=== PATIENT | female | born 1985 ===

== ENCOUNTER 2022-01-23 11:36 | Emergency (ER) | payer MEDICAID ==
[2022-01-23 14:47] VITALS: BP 155/98
[2022-01-23] MEDS ORDERED: SODIUM CHLORIDE 0.9% 1000 ML 1,000 ML IV ONE (14:50)
[2022-01-23] MEDS ORDERED: ONDANSETRON 4 MG/2 ML INJ IV ONE (14:50)
[2022-01-23 15:21] LABS: Bilirubin,Urine NEG (Negative); Blood,Urine NEG (Negative); Color,Urine Yellow (Yellow); Urobilinogen,Urine < 2.0 mg/dL (<2.0)
--- NOTE | 2022-01-23 15:22 | Emergency Department Report ---
ED General Adult HPI - General Chief complaint: Abdominal Pain Stated complaint: ABDOMINAL PAIN PUI?: No Time Seen by Provider: 01/23/22 15:00 Source: patient, EMS Mode of arrival: Stretcher Limitations: No Limitations - History of Present Illness Initial comments: 36-year-old female came in today with concerns of 1 to 2 weeks of vomiting. Patient also endorsed generalized abdominal discomfort. According patient she has not had a good bowel movement for the past 2 to 3 days. According patient she has been having to strain in order to pass stool. Patient denies any other discomfort. Patient denies fever chill night sweat dizziness blurred vision lightheadedness headache tinnitus ear pain runny nose sore throat loss of taste loss of smell chest pain palpitation short of breath cough diarrhea dysuria myalgia arthralgia new rash he will call intolerance. Severity scale (0 -10): 10 - Related Data Home Medications Medication Instructions Recorded Confirmed Last Taken Cyclobenzaprine [Flexeril 10mg] 10 mg PO TID 10/02/14 10/02/14 Unknown cephALEXin [Keflex] 500 mg PO Q6H 10/02/14 10/02/14 10/02/14 traMADoL [Ultram] 50 mg PO Q6HR PRN 10/02/14 10/02/14 10/02/14 Previous Rx's Medication Instructions Recorded Last Taken Type HYDROcodone/APAP 5-325 [[place] 1 each PO Q6HR PRN #20 tablet 10/03/14 Unknown Rx 5/325] Ciprofloxacin HCl [Ciprofloxacin 500 mg PO Q12HR #20 tab 06/14/15 Unknown Rx TAB] Phenazopyridine [Pyridium] 100 mg PO TID #6 tab 06/14/15 Unknown Rx Sennosides/Docusate Sodium 1 each PO Q12H #6 01/23/22 Unknown Rx [Docusate Sodium-Senna Tablet] Allergies Allergy/AdvReac Type Severity Reaction Status Date / Time No Known Allergies Allergy Verified 01/23/22 12:02 ED Review of Systems ROS: Stated complaint: ABDOMINAL PAIN Other details as noted in HPI Comment: All other systems reviewed and negative Constitutional: no symptoms reported, see HPI Eyes: as per HPI ENT: as per HPI Respiratory: no symptoms reported Cardiovascular: as per HPI Endocrine: no symptoms reported Gastrointestinal: abdominal pain, vomiting, constipation. denies: nausea, diarrhea, hematemesis, melena, hematochezia Genitourinary: as per HPI Musculoskeletal: as per HPI Skin: as per HPI Neurological: as per HPI Psychiatric: as per HPI Hematological/Lymphatic: as per HPI ED Past Medical Hx - Past Medical History Previous Medical History?: No - Surgical History Past Surgical History?: No Additional Surgical History: x 3, Panniculectomy, ablation - Social History Smoking Status: Current Every Day Smoker Substance Use Type: Marijuana - Medications Home Medications: Home Medications Medication Instructions Recorded Confirmed Last Taken Type Cyclobenzaprine [Flexeril 10mg] 10 mg PO TID 10/02/14 10/02/14 Unknown History cephALEXin [Keflex] 500 mg PO Q6H 10/02/14 10/02/14 10/02/14 History traMADoL [Ultram] 50 mg PO Q6HR PRN 10/02/14 10/02/14 10/02/14 History HYDROcodone/APAP 5-325 [[place] 1 each PO Q6HR PRN #20 tablet 10/03/14 Unknown Rx 5/325] Ciprofloxacin HCl [Ciprofloxacin 500 mg PO Q12HR #20 tab 06/14/15 Unknown Rx TAB] Phenazopyridine [Pyridium] 100 mg PO TID #6 tab 06/14/15 Unknown Rx Sennosides/Docusate Sodium 1 each PO Q12H #6 01/23/22 Unknown Rx [Docusate Sodium-Senna Tablet] ED Physical Exam - General Limitations: No Limitations General appearance: alert - Head Head exam: Present: atraumatic, normocephalic, normal inspection - Eye Eye exam: Present: normal appearance, PERRL, EOMI Pupils: Present: normal accommodation - ENT ENT exam: Present: normal exam - Neck Neck exam: Present: normal inspection, full ROM - Respiratory Respiratory exam: Present: normal lung sounds bilaterally - Cardiovascular Cardiovascular Exam: Present: regular rate, normal rhythm, normal heart sounds - GI/Abdominal GI/Abdominal exam: Present: soft. Absent: distended, tenderness, guarding, rebound, rigid - Extremities Exam Extremities exam: Present: normal inspection, full ROM, normal capillary refill - Back Exam Back exam: Present: normal inspection, full ROM - Neurological Exam Neurological exam: Present: alert, oriented X3, CN II-XII intact - Psychiatric Psychiatric exam: Present: normal affect, normal mood - Skin Skin exam: Present: normal color ED Course Vital Signs 01/23/22 01/23/22 01/23/22 11:52 12:00 14:02 Temperature 97.9 F Pulse Rate 82 67 Respiratory 20 Rate Blood Pressure Blood Pressure 148/88 [Left] O2 Sat by Pulse 98 Oximetry 01/23/22 01/23/22 01/23/22 14:13 14:16 14:30 Temperature Pulse Rate 64 79 Respiratory 18 9 L 16 Rate Blood Pressure 140/91 146/90 Blood Pressure [Left] O2 Sat by Pulse 99 100 100 Oximetry 01/23/22 14:46 Temperature Pulse Rate 70 Respiratory 22 Rate Blood Pressure 155/98 Blood Pressure [Left] O2 Sat by Pulse 98 Oximetry ED Medical Decision Making - Lab Data Result diagrams: 01/23/22 15:25 01/23/22 15:25 Critical care attestation.: If time is entered above; I have spent that time in minutes in the direct care of this critically ill patient, excluding procedure time. ED Disposition Clinical Impression: UTI (urinary tract infection), Constipation Disposition: 01 HOME / SELF CARE / HOMELESS Is pt being admited?: No Does the pt Need Aspirin: No Condition: Stable Instructions: Abdominal Pain (ED) Prescriptions: Sennosides/Docusate Sodium [Docusate Sodium-Senna Tablet] 1 each PO Q12H #6 Referrals: PRIMARY CARE, [Primary Care Provider] - 3-5 Days Time of Disposition: 18:52
[2022-01-23 15:26] LABS: HCG Qualitative,Urine Negative (Negative); Mucus,Urine 3+ /HPF
[2022-01-23 16:04] LABS: Alanine Aminotransferase 13 units/L (7-56); Albumin 4.5 g/dL (3.9-5); BUN/Creatinine Ratio 10; Blood Urea Nitrogen 8 mg/dL (7-17); Calcium 9.4 mg/dL (8.4-10.2); Hemolysis Index 14
[2022-01-23 16:07] LABS: Hematocrit 41.8 % (30.3-42.9); Hemoglobin 13.7 gm/dl (10.1-14.3); Mean Corpuscular HGB Conc 33 % (30-34); Mean Corpuscular Volume 89 fl (79-97); Red Blood Count 4.68 M/mm3 (3.65-5.03); Red Cell Distribution Width 13.9 % (13.2-15.2)
[2022-01-23 16:08] LABS: Mean Platelet Volume 10.3 fl (6-12); Platelet Count 239 K/mm3 (140-440)
[2022-01-23 16:54] LABS: Bilirubin,Direct < 0.2 mg/dL (0-0.2)
--- NOTE | 2022-01-23 17:26 | XRay Report ---
ABDOMEN 1 VIEW 01/23/2022 INDICATION / CLINICAL INFORMATION: GENERALIZED ABD DISCOMFORT; PEGNANCY NEGATIAVE. COMPARISON: None available. FINDINGS: TUBES / LINES: None. BOWEL GAS PATTERN: No significant abnormality. FREE AIR / EXTRALUMINAL GAS: None seen. ADDITIONAL FINDINGS: No significant additional findings. IMPRESSION: 1. No significant abnormality. Signer Name: Vaibhav Ware DO Signed: 01/23/2022 5:20 PM Workstation Name: [id number]
[2022-01-23 17:32] LABS: Basophils % (Manual) 0 % (0.0-1.8); Eosinophils % (Manual) 0 % (0.0-4.3); Total Cells Counted 100
[2022-01-23 17:33] LABS: Large Platelets Few; Platelet Estimate Consistent w Auto; RBC Morphology Normal
[2022-01-23] MEDS ORDERED: LACTULOSE 20 GM/30 ML ORAL LIQD PO ONE (18:19)
[2022-01-23] MEDS ORDERED: KETOROLAC 10 MG TAB PO ONE (18:44)
[2022-01-23] MEDS ORDERED: NITROFURANTOIN MONOHYD/M-CRYST 100 MG CAP PO ONE (18:44)
== END 2022-01-23 19:00 | disposition home or self-care (01) ==
LOC: ED 11:36
DX: N39.0 Urinary tract infection, site not specified (principal); K59.00 Constipation, unspecified; F17.200 Nicotine dependence, unspecified, uncomplicated; F12.90 Cannabis use, unspecified, uncomplicated
CPT/HCPCS: 36415; 74018; 80048; 80076; 81001; 81025; 82150; 83690; 84703; 85007; 85025; 87086; 96361; 96374; 99284; J2405; J7030